=== PATIENT | male | born 1980 | race African-American/Black ===

== ENCOUNTER 2016-12-25 13:21 | Emergency (ER) | payer MEDICAID ==
[~2016-12-25] VITALS: Ht 180.3 cm; Wt 72.0 kg
[2016-12-25] MEDS ORDERED: LIDOCAINE HCL 1% 20ML VIAL (Pyxis) INJ MC ONE (18:15)
[2016-12-25] MEDS ORDERED: HYDROCODONE/ACETAMINOPHEN 5/325MG TABLET PO ONE (18:15)
[2016-12-25] MEDS ORDERED: TETANUS, DIPHTHERIA, PERTUSSIS VAC/PF 0.5ML (>7YR OLD) IM ONE (18:15)
[2016-12-25] MEDS ORDERED: BACITRACIN ZINC OINT UDPKT TOP ONE (18:15)
[2016-12-25 18:39] VITALS: BP 118/78
== END 2016-12-25 19:05 | disposition home or self-care (01) ==
LOC: ER 16:13
DX: L02.415 Cutaneous abscess of right lower limb (principal); L02.411 Cutaneous abscess of right axilla; Z23 Encounter for immunization; Z86.19 Personal history of other infectious and parasitic diseases; F17.210 Nicotine dependence, cigarettes, uncomplicated; F12.90 Cannabis use, unspecified, uncomplicated; Z98.890 Other specified postprocedural states
CPT/HCPCS: 10060; 90471; 90715; 99283; J3490; Z7610

== ENCOUNTER 2017-04-03 12:37 | Emergency (ER) | payer MEDICAID ==
[~2017-04-03] VITALS: Ht 180.3 cm; Wt 66.0 kg
[2017-04-03 12:40] VITALS: BP 124/83
== END 2017-04-03 15:16 | disposition home or self-care (01) ==
LOC: ER 12:37
DX: M79.1 Myalgia (principal); F17.200 Nicotine dependence, unspecified, uncomplicated; F12.10 Cannabis abuse, uncomplicated; F31.9 Bipolar disorder, unspecified; V49.9XXA Car occupant (driver) (passenger) injured in unspecified traffic accident, initial encounter; Y93.89 Activity, other specified; Y92.89 Other specified places as the place of occurrence of the external cause; Y99.8 Other external cause status
CPT/HCPCS: 99283

== ENCOUNTER 2017-04-07 19:56 | Emergency (ER) | payer MEDICAID ==
[~2017-04-07] VITALS: Ht 180.3 cm; Wt 70.0 kg
[2017-04-07 20:00] VITALS: BP 118/55
== END 2017-04-07 22:37 | disposition home or self-care (01) ==
LOC: ER 19:56
DX: L02.416 Cutaneous abscess of left lower limb (principal); T63.301A Toxic effect of unspecified spider venom, accidental (unintentional), initial encounter; F17.200 Nicotine dependence, unspecified, uncomplicated
CPT/HCPCS: 99283

== ENCOUNTER 2017-04-29 13:02 | Emergency (ER) | payer MEDICAID ==
[~2017-04-29] VITALS: Ht 180.3 cm; Wt 70.5 kg
[2017-04-29] MEDS ORDERED: RISPERDAL (13:23)
[2017-04-29 14:04] VITALS: BP 111/58
== END 2017-04-29 15:12 | disposition home or self-care (01) ==
LOC: ER 13:24
DX: T63.301A Toxic effect of unspecified spider venom, accidental (unintentional), initial encounter (principal); L03.116 Cellulitis of left lower limb; Z76.5 Malingerer [conscious simulation]; M54.5 Low back pain; R26.2 Difficulty in walking, not elsewhere classified; Y93.89 Activity, other specified; W01.0XXA Fall on same level from slipping, tripping and stumbling without subsequent striking against object, initial encounter; Y92.481 Parking lot as the place of occurrence of the external cause; F31.9 Bipolar disorder, unspecified; F20.9 Schizophrenia, unspecified; F17.210 Nicotine dependence, cigarettes, uncomplicated; F12.90 Cannabis use, unspecified, uncomplicated; Z87.828 Personal history of other (healed) physical injury and trauma
CPT/HCPCS: 99283

== ENCOUNTER 2017-07-24 23:17 | Emergency (ER) | payer MEDICAID ==
[~2017-07-24] VITALS: Ht 180.3 cm; Wt 73.0 kg
[~2017-07-24 23:17] MED LIST: RISPERDAL
[2017-07-25 00:49] LABS: BASOPHILS % 0.8 % (0.0-2.0); EOSINOPHILS % 2.4 % (0.0-5.0); HEMATOCRIT. 40.9 % (42.0-52.0); HEMOGLOBIN. 13.4 g/dL (14.0-18.0); LYMPHOCYTES % 44.9 % (20.0-50.0); MEAN CORPUSCULAR VOLUME 88.6 fL (80.0-94.0); MEAN PLATELET VOLUME 8.4 fl (7.4-10.4); MONOCYTES % 11.1 % (2.0-8.0); NEUTROPHILS % 40.8 % (40.0-76.0); PLATELET 221 x1000/uL (130-400); RED BLOOD CELL COUNT 4.61 mill/uL (4.7-6.1); RED CELL DISTRIBUTION WIDTH 14.4 % (11.6-14.6)
[2017-07-25 00:58] LABS: PROTHROMBIN TIME 10.7 sec (9.4-11.6)
[2017-07-25 01:02] LABS: CHLORIDE 109 mEq/L (98-107)
[2017-07-25 01:08] LABS: TROPONIN I < 0.02 ng/mL (0.00-0.04)
[2017-07-25] MEDS ORDERED: AZITHROMYCIN 500 MG TABLET PO NR (02:00)
[2017-07-25] MEDS: CEFTRIAXONE SODIUM 250 MG/VIAL IM NR ×2 (02:42→03:48)
[2017-07-25 04:09] VITALS: BP 124/78
== END 2017-07-25 04:11 | disposition home or self-care (01) ==
LOC: ER 23:17
DX: R07.89 Other chest pain (principal); Z11.3 Encounter for screening for infections with a predominantly sexual mode of transmission; R51 Headache; F12.10 Cannabis abuse, uncomplicated
CPT/HCPCS: 36415; 71045; 80053; 83880; 84484; 85025; 85610; 93005; 96372; 99285; J0696; Z7610

== ENCOUNTER 2018-03-07 14:29 | Emergency (ER) | payer MEDICAID ==
[~2018-03-07] VITALS: Ht 180.3 cm; Wt 61.0 kg
[2018-03-07] MEDS ORDERED: SODIUM CHLORIDE 0.9% 500 ML IV ONE (15:45)
[2018-03-07 17:04] LABS: BASOPHILS % 0.6 % (0.0-2.0); EOSINOPHILS % 2.7 % (0.0-5.0); HEMATOCRIT. 38.9 % (42.0-52.0); HEMOGLOBIN. 12.7 g/dL (14.0-18.0); LYMPHOCYTES % 25.4 % (20.0-50.0); MEAN CORPUSCULAR HEMOGLOBIN 29.7 pg (28.0-32.0); MEAN CORPUSCULAR VOLUME 90.6 fL (80.0-94.0); MEAN PLATELET VOLUME 8.4 fl (7.4-10.4); NEUTROPHILS % 59.3 % (40.0-76.0); PLATELET 212 x1000/uL (130-400); RED BLOOD CELL COUNT 4.29 mill/uL (4.7-6.1); RED CELL DISTRIBUTION WIDTH 14.1 % (11.6-14.6)
[2018-03-07 17:11] LABS: CHLORIDE 107 mEq/L (98-107)
[2018-03-07 17:55] VITALS: BP 123/75
== END 2018-03-07 18:22 | disposition home or self-care (01) ==
LOC: ER 16:28
DX: R60.0 Localized edema (principal); R55 Syncope and collapse; F12.10 Cannabis abuse, uncomplicated; F31.9 Bipolar disorder, unspecified; F20.9 Schizophrenia, unspecified; Z98.890 Other specified postprocedural states
CPT/HCPCS: 36415; 80053; 82962; 85025; 93005; 93970; 96360; 96361; 99285; J7040; Z7610